=== PATIENT | male | born 1995 | race Caucasian/White ===

== ENCOUNTER 2019-02-18 10:27 | Day surgery (SDC) | payer OTHER ==
[~2019-02-18] VITALS: Ht 172.7 cm; Wt 44.0 kg
[2019-02-18 11:00] VITALS: Ht 172.7 cm; Wt 44.0 kg
[2019-02-18 11:04] VITALS: BP 87/54; PULSE 56; RESP 15
--- NOTE | 2019-02-18 11:05 | PREAC ---
Date/Time of Note Date/Time of Note DATE: 02/18/19 TIME: 11:03 Anesthesia Eval and Record Evaluation Time Pre-Procedure Interview DATE: 02/18/19 TIME: 11:03 Age 23 Sex male NPO: 8 hrs Preoperative diagnosis Polyp, Abdominal Pain Planned procedure EGD, Colonoscopy Past Medical History Past Medical History: Includes GI: GERD, Other (Polyp, ) Recreational drugs: Marijuana Surgery & Anesthesia Issues No known issue Meds Anticoagulation: No Beta Shantanu within 24 hr: No Reason Beta Shantanu not given: Pt. not on B-Shantanu Meds reviewed: Yes Allergies Allergies Reviewed: Yes Labs/Studies Labs Reviewed: Reviewed by anesthesiologist test: N/A Studies: ECG (n/a), CXR (n/a) Pre-procedure Exam Airway: Adequate mouth opening, Adequate thyromental dist Mallampati: Mallampati II Teeth: Normal Lung: Normal Heart: Normal ASA Physical Status ASA physical status: 2 Emergency: None Planned Anesthetic General/MAC: MAC Planned Pain Management Parenteral pain med Pre-operative Attestations Prior to commencing anesthesia and surgery, the patient was re-evaluated, there was verification of: *The patient's identity *The results of appropriate recent lab work and preoperative vital signs *The above evaluation not changing prior to induction *Anesthetic plan, risk benefits, alternative and complications discussed with patient/family; questions answered; patient/family understands, accepts and wishes to proceed. ADELAIDE MERIDA MD Feb 18, 2019 11:05
[2019-02-18] MEDS ORDERED: creon PO (11:16)
[2019-02-18] MEDS ORDERED: pancrelipase PO (11:16)
--- NOTE | 2019-02-18 11:41 | PAC ---
Date/Time of Note Date/Time of Note DATE: 02/18/19 TIME: 11:41 Post-Anesthesia Notes Post-Anesthesia Note Last documented vital signs T: 98.0 Activity: WNL Respiratory function: WNL Cardiovascular function: WNL Mental status: Baseline Pain reasonably controlled: Yes Hydration appropriate: Yes Nausea/Vomiting absent: Yes ADELAIDE MERIDA MD Feb 18, 2019 11:41
[2019-02-18 12:13] VITALS: BP 106/67; PULSE 54; RESP 18
== END 2019-02-18 12:37 | disposition home or self-care (01) ==
LOC: GIL 10:27
PROVIDERS: ATTEND Internal Medicine Gastroenterology
DX: Z86.010 Personal history of colon polyps (principal); K64.8 Other hemorrhoids; K44.9 Diaphragmatic hernia without obstruction or gangrene; K21.9 Gastro-esophageal reflux disease without esophagitis; K31.9 Disease of stomach and duodenum, unspecified
CPT/HCPCS: 43239; 45380; 88305; 88312; Z7610